=== PATIENT | male | born 1955 | race American Indian/Alaskan Native ===

== ENCOUNTER 2018-05-13 15:05 | Outpatient (CLI) | payer OTHER ==
--- NOTE | 2018-05-13 21:22 | XRay Report ---
FINAL REPORT EXAM: XR SPINE LUMBOSACRAL 2-3V HISTORY: LOW BACK PAIN, DISABILITY EXAM TECHNIQUE: AP, lateral and coned-down views of lumbar spine. PRIORS: None. FINDINGS: Marked disc space narrowing, less severe endplate sclerosis and spurring in the L5-S1 level. Mild posterior disc space narrowing in remainder of upper lumbar spine. Facet sclerosis lower lumbar spine. Possible, chronic pars defects or spondylolysis in the L5-S1 level. Degenerative change also noted in lower thoracic spine. No loss of height or gross malalignment of lumbar vertebral bodies. No obvious osseous destruction. Paraspinal soft tissues grossly unremarkable. IMPRESSION: 1. No acute osseous abnormality. 2. Degenerative changes.
== END 2018-05-13 15:06 | disposition home or self-care (01) ==
LOC: XRAY 15:05
PROVIDERS: ATTEND Internal Medicine
DX: Z02.71 Encounter for disability determination (principal); M47.897 Other spondylosis, lumbosacral region
CPT/HCPCS: 72100